=== PATIENT | female | born 1980 | race Caucasian/White ===

== ENCOUNTER → 2019-04-22 | Outpatient (CLI) | payer OTHER ==
[~2019-04-22] MED LIST: ALBU90OI INH; ALBU90OI61 INH; ALPR1 PO; Ambien10 MG PO; Amoxicillin500 MG PO; Ativan1 MG PO; BENZ100A PO; BENZ2 PO; BUDE6HFA INH; Bactrim Ds Tab1 EACH PO; CALC.25; CYCL10 PO; Cleocin HCl300 MG PO; Crutch1 EACH MISC; DIAZ5 PO; Doxycycline Hy100 MG PO; Duoneb 2.5-0.5 M3 ML INH; HYDPAM50 PO; HYDR1TAB94 PO; IBUP600 PO; IBUP800 PO; INS70/30I SUBQ; INSULANI SUBQ; Keflex500 MG PO; Lamotrigine25 MG PO; Lithium Carbon600 MG PO; METF500 PO; Monodox100 MG PO; NORT10 PO; Norco 5-325 Ta1 EACH PO; OXYACE5T PO; PRED10 PO; Percocet 5-3251 EACH PO; Prednisone10 MG PO; Prednisone20 MG PO; Pyridium200 MG PO; QUET100 PO; QUET25 PO; SPACE CHAMBER1 EACH MC; Tylenol325 MG PO; Ventolin Soln3 ML INH; Xanax1 MG PO; ZIPR40 PO
== END | disposition home or self-care (01) ==
LOC: LAB SRC 14:15 → LAB SHORT 14:15
DX: N39.0 Urinary tract infection, site not specified (principal)
CPT/HCPCS: 87077; 87086; 87186

== ENCOUNTER 2020-04-23 18:45 | Emergency (ER) | payer OTHER ==
[~2020-04-23] VITALS: Ht 157.5 cm; Wt 80.3 kg
[2020-04-23] MEDS ORDERED: KETO10 PO (21:20)
[2020-04-23] MEDS ORDERED: ATOR20 PO (21:32)
[2020-04-23] MEDS ORDERED: ZIPR40 PO (21:39)
== END 2020-04-23 21:40 | disposition home or self-care (01) ==
LOC: ER 18:45
DX: S60.032A Contusion of left middle finger without damage to nail, initial encounter (principal); J45.909 Unspecified asthma, uncomplicated; F31.9 Bipolar disorder, unspecified; N19 Unspecified kidney failure; F17.210 Nicotine dependence, cigarettes, uncomplicated; Z88.5 Allergy status to narcotic agent; Z88.8 Allergy status to other drugs, medicaments and biological substances; Z79.899 Other long term (current) drug therapy; W23.0XXA Caught, crushed, jammed, or pinched between moving objects, initial encounter
CPT/HCPCS: 73130

== ENCOUNTER → 2022-01-15 | Outpatient (CLI) | payer OTHER ==
[~2022-01-15] MED LIST changes: +ATOR20 PO; +FLOVENT HFA12 GM INH; +GABA100 PO; +INSULANPEN SC; +KETO10 PO; +NITR100CA PO; +PHENA200 PO; +Ventolin/Prove6.7 GM INH
== END | disposition home or self-care (01) ==
LOC: LAB 16:21 → LAB SHORT 16:21
DX: N39.0 Urinary tract infection, site not specified (principal)
CPT/HCPCS: 87086

== ENCOUNTER → 2022-01-23 | Outpatient (CLI) | payer OTHER | END | disposition home or self-care (01) | LOC: LAB 12:00 → LAB SHORT 12:00 | DX: N39.0 Urinary tract infection, site not specified (principal) | CPT/HCPCS: 87077; 87086; 87186 ==

== ENCOUNTER → 2022-01-30 | Outpatient (CLI) | payer OTHER | END | disposition home or self-care (01) | LOC: LAB SHORT 17:10 → LAB 17:10 | DX: N39.0 Urinary tract infection, site not specified (principal) | CPT/HCPCS: 87077; 87086; 87186 ==

== ENCOUNTER → 2022-02-01 | Outpatient (CLI) | payer OTHER | END | disposition home or self-care (01) | LOC: LAB 12:00 → LAB SHORT 12:00 | DX: N39.0 Urinary tract infection, site not specified (principal) | CPT/HCPCS: 87077; 87086; 87186 ==

== ENCOUNTER → 2022-04-26 | Outpatient (CLI) | payer OTHER | END | disposition home or self-care (01) | LOC: LAB 12:00 → LAB SHORT 12:00 | DX: N39.0 Urinary tract infection, site not specified (principal) | CPT/HCPCS: 87077; 87086; 87186 ==

== ENCOUNTER 2022-08-08 11:48 | Emergency (ER) | payer OTHER ==
[~2022-08-08] VITALS: Ht 152.4 cm; Wt 64.9 kg
[2022-08-08 12:22] LABS: Source, Urine Clean Catch
[2022-08-08 12:24] LABS: BASOPHILS ABSOLUTE AUTO 0.07 K/mm3 (0.00-0.23); BASOPHILS PERCENT AUTO 1 % (0-2); EOSINOPHILS ABSOLUTE AUTO 0.19 K/mm3 (0.00-0.68); EOSINOPHILS PERCENT AUTO 2 % (0-6); Hematocrit 45.7 % (33.0-51.0); Hemoglobin 16.6 g/dL (11.5-16.0); IMMATURE GRAN ABSOLUTE AUTO 0.04 K/mm3 (0.00-0.10); IMMATURE GRAN PERCENT AUTO 0 % (0-1); LYMPHOCYTES PERCENT AUTO 37 % (21-46); MONOCYTES ABSOLUTE AUTO 0.56 K/mm3 (0.16-1.47); MONOCYTES PERCENT AUTO 5 % (4-13); Mean Corpuscular HGB 31.2 pg (26.0-34.0); Mean Corpuscular HGB Conc 36.3 g/dL (31.5-36.5); Mean Corpuscular Volume 86 fL (80-100); Mean Platelet Volume 10.3 fL (9.1-12.4); NEUTROPHILS PERCENT AUTO 55 % (41-73); Platelet Count 266 K/mm3 (150-400); RDW Coefficient Variation 11.6 % (11.7-14.2); RDW Standard Deviation 36.1 fL (35.1-46.3); Red Blood Cell Count 5.32 M/mm3 (3.80-5.20); White Blood Cell Count 10.66 K/mm3 (4.00-11.30)
[2022-08-08 12:25] LABS: Bilirubin, Urine Neg (Neg); Blood, Urine 2+ (Neg); Glucose Qualitative, Urine 4+ (Neg); Ketones, Urine Neg (Neg); Leukocyte Esterase, Urine 2+ (Neg); Nitrite, Urine Neg (Neg); Protein, Urine 2+ (Neg); Specific Gravity, Urine 1.015 (1.003-1.022); Urobilinogen, Urine NORM (Normal)
[2022-08-08 12:41] LABS: Albumin, Blood 3.7 g/dL (3.4-5.0); Albumin/Globulin Ratio 0.9 (0.8-1.8); Bilirubin, Total 0.4 mg/dL (0.1-1.0); Bun/Creatinine Ratio 19.1 (12.0-20.0); Calcium, Blood 9.6 mg/dL (8.5-10.1); Creatinine, Blood 0.84 mg/dL (0.40-1.00); Potassium, Blood 3.9 mmol/L (3.5-5.5); Total Protein, Blood 7.7 g/dL (6.4-8.2)
[2022-08-08 12:43] LABS: Appearance, Urine Hazy (Clear); Color, Urine Yellow (P-Yellow)
[2022-08-08 12:44] LABS: Bacteria Few /hpf; Squamous Epithelial Cells Few /hpf (Few)
[2022-08-08 13:49] LABS: U Amphetamine Screen Not Detected; U Barbituate Screen Not Detected; U Benzodiazapine Screen Not Detected; U Buprenorphine Screen Not Detected; U Cannabinoids Screen DETECTED; U Cocaine Screen Not Detected; U Methadone Screen Not Detected; U Methamphetamine Screen Not Detected; U Opiates Screen Not Detected; U Oxycodone Screen Not Detected; U Phencyclidine Screen Not Detected; U Propoxyphene Screen Not Detected
== END 2022-08-08 13:31 | disposition left against medical advice (07) ==
LOC: ER 11:48
PROVIDERS: Physician Assistant
DX: R56.9 Unspecified convulsions (principal); Z53.21 Procedure and treatment not carried out due to patient leaving prior to being seen by health care provider; Z79.899 Other long term (current) drug therapy
CPT/HCPCS: 36415; 80053; 81001; 83735; 85025

== ENCOUNTER 2023-04-11 17:20 | Emergency (ER) | payer OTHER ==
[~2023-04-11] VITALS: Ht 154.9 cm; Wt 49.9 kg
[~2023-04-11 17:20] MED LIST changes: +ATOR40TA PO; +CEFP200 PO; +ESTRADIOL42.5 GM VAG; +LEVETIRACETAM1000 M1 PO; +LEVETIRACETAM50014 PO; +METFORMIN HCL500 M2 PO; +Methocarbamol500 MG PO; +NEURONTIN300 MG PO; +PRAZOSIN HCL1 M2 PO
[2023-04-11 17:55] VITALS: BP 99/74
[2023-04-11 18:20] LABS: Source, Urine Clean Catch
[2023-04-11 18:41] LABS: BASOPHILS ABSOLUTE AUTO 0.11 K/mm3 (0.00-0.23); BASOPHILS PERCENT AUTO 1 % (0-2); EOSINOPHILS ABSOLUTE AUTO 0.17 K/mm3 (0.00-0.68); EOSINOPHILS PERCENT AUTO 1 % (0-6); Hematocrit 44.9 % (33.0-51.0); Hemoglobin 15.8 g/dL (11.5-16.0); IMMATURE GRAN ABSOLUTE AUTO 0.16 K/mm3 (0.00-0.10); IMMATURE GRAN PERCENT AUTO 1 % (0-1); LYMPHOCYTES ABSOLUTE AUTO 4.11 K/mm3 (0.84-5.20); LYMPHOCYTES PERCENT AUTO 29 % (21-46); MONOCYTES PERCENT AUTO 7 % (4-13); Mean Corpuscular HGB 29.4 pg (26.0-34.0); Mean Corpuscular HGB Conc 35.2 g/dL (31.5-36.5); Mean Corpuscular Volume 84 fL (80-100); NEUTROPHILS ABSOLUTE AUTO 8.51 K/mm3 (1.96-9.15); NEUTROPHILS PERCENT AUTO 61 % (41-73); Platelet Count 457 K/mm3 (150-400); RDW Coefficient Variation 11.9 % (11.7-14.2); RDW Standard Deviation 35.8 fL (35.1-46.3); Red Blood Cell Count 5.38 M/mm3 (3.80-5.20); White Blood Cell Count 14.06 K/mm3 (4.00-11.30)
[2023-04-11 18:53] LABS: Appearance, Urine Hazy (Clear); Bilirubin, Urine Neg (Neg); Blood, Urine 5+ (Neg); Glucose Qualitative, Urine 4+ (Neg); Ketones, Urine Neg (Neg); Leukocyte Esterase, Urine 2+ (Neg); Nitrite, Urine Neg (Neg); Protein, Urine 2+ (Neg); Specific Gravity, Urine 1.015 (1.003-1.022); Urobilinogen, Urine NORM (Normal)
[2023-04-11 18:59] LABS: Magnesium, Blood 2.1 mg/dL (1.6-2.4)
[2023-04-11 19:15] LABS: Albumin, Blood 2.8 g/dL (3.4-5.0); Albumin/Globulin Ratio 0.5 (0.8-1.8); Bilirubin, Total 0.5 mg/dL (0.1-1.0); Bun/Creatinine Ratio 37.4 (12.0-20.0); Calcium, Blood 10.1 mg/dL (8.5-10.1); Creatinine, Blood 0.72 mg/dL (0.40-1.00); Globulin, Blood 5.3 g/dL (2.2-4.0); Potassium, Blood 4.7 mmol/L (3.5-5.5); Total Protein, Blood 8.1 g/dL (6.4-8.2)
[2023-04-11 19:44] LABS: Color, Urine Pale Yellow (P-Yellow)
[2023-04-11 19:46] LABS: Bacteria Many /hpf; Mucus Light (0-Heavy); Squamous Epithelial Cells Few /hpf (Few); White Blood Cells, Urine TNTC /hpf (0-5)
== END 2023-04-11 19:02 | disposition left against medical advice (07) ==
LOC: ER 17:20
PROVIDERS: Physician Assistant
DX: R10.30 Lower abdominal pain, unspecified (principal); Z53.29 Procedure and treatment not carried out because of patient's decision for other reasons
CPT/HCPCS: 80053; 81001; 83735; 85025; 87077; 87086; 87186; 99283

== ENCOUNTER 2023-05-14 17:02 | Emergency (ER) | payer OTHER ==
[~2023-05-14] VITALS: Ht 154.9 cm; Wt 49.9 kg
[2023-05-14 18:00] LABS: BASOPHILS ABSOLUTE AUTO 0.04 K/mm3 (0.00-0.23); BASOPHILS PERCENT AUTO 0 % (0-2); EOSINOPHILS ABSOLUTE AUTO 0.06 K/mm3 (0.00-0.68); EOSINOPHILS PERCENT AUTO 1 % (0-6); Hematocrit 40.2 % (33.0-51.0); Hemoglobin 13.3 g/dL (11.5-16.0); IMMATURE GRAN ABSOLUTE AUTO 0.04 K/mm3 (0.00-0.10); IMMATURE GRAN PERCENT AUTO 0 % (0-1); LYMPHOCYTES ABSOLUTE AUTO 2.15 K/mm3 (0.84-5.20); LYMPHOCYTES PERCENT AUTO 19 % (21-46); MONOCYTES ABSOLUTE AUTO 0.75 K/mm3 (0.16-1.47); MONOCYTES PERCENT AUTO 7 % (4-13); Mean Corpuscular HGB 28.7 pg (26.0-34.0); Mean Corpuscular HGB Conc 33.1 g/dL (31.5-36.5); Mean Corpuscular Volume 87 fL (80-100); Mean Platelet Volume 10.3 fL (9.1-12.4); NEUTROPHILS ABSOLUTE AUTO 8.28 K/mm3 (1.96-9.15); NEUTROPHILS PERCENT AUTO 73 % (41-73); Platelet Count 531 K/mm3 (150-400); RDW Coefficient Variation 12.1 % (11.7-14.2); RDW Standard Deviation 38.6 fL (35.1-46.3); Red Blood Cell Count 4.64 M/mm3 (3.80-5.20); White Blood Cell Count 11.32 K/mm3 (4.00-11.30)
[2023-05-14 18:15] LABS: Albumin, Blood 2.5 g/dL (3.4-5.0); Albumin/Globulin Ratio 0.5 (0.8-1.8); Bilirubin, Total 0.3 mg/dL (0.1-1.0); Bun/Creatinine Ratio 25.2 (12.0-20.0); Calcium, Blood 9.3 mg/dL (8.5-10.1); Creatinine, Blood 0.87 mg/dL (0.40-1.00); Globulin, Blood 4.9 g/dL (2.2-4.0); Potassium, Blood 4.7 mmol/L (3.5-5.5); Total Protein, Blood 7.4 g/dL (6.4-8.2)
[2023-05-14 18:17] LABS: Source, Urine Clean Catch
[2023-05-14 18:29] LABS: Appearance, Urine Hazy (Clear); Bilirubin, Urine Neg (Neg); Blood, Urine 2+ (Neg); Color, Urine Yellow (P-Yellow); Glucose Qualitative, Urine 4+ (Neg); Ketones, Urine Neg (Neg); Leukocyte Esterase, Urine 3+ (Neg); Nitrite, Urine Neg (Neg); Protein, Urine 1+ (Neg); Urobilinogen, Urine NORM (Normal)
[2023-05-14 18:35] LABS: Base Excess Venous 6.1 mmol/L; Bicarbonate Venous 27.2 mmol/L (24.0-30.0); PCO2 Venous 57.4 mmHg (38-42); pH Blood Venous 7.35 (7.34-7.37)
[2023-05-14 18:39] LABS: Beta-hydroxybutyrate 0.7 mg/dL (0.2-2.8)
[2023-05-14 19:40] LABS: White Blood Cells, Urine 50-100 /hpf (0-5)
[2023-05-14 19:41] LABS: Bacteria Many /hpf; Squamous Epithelial Cells Few /hpf (Few)
[2023-05-14 20:45] VITALS: BP 98/59
[2023-05-14 23:40] LABS: Calcium, Ionized (POC) 1.23 mmol/L (1.10-1.46); Chloride (POC) 96 mmol/L (98-108); Creatinine (POC) 0.7 mg/dL (0.6-1.0); Glucose (ISTAT POC) 350 mg/dL (70-99); Hemoglobin (POC) 12.9 g/dL (12.0-16.0); Potassium (POC) 4.1 mmol/L (3.5-5.5); Sodium (POC) 132 mmol/L (135-148); Total CO2 (POC) 28 mmol/L (21-32)
[2023-05-14] MEDS ORDERED: Lantus100 UNIT/1 SC (23:49)
[2023-05-14] MEDS ORDERED: ONDA4ODT SL (23:49)
[2023-05-14] MEDS ORDERED: CEFP200 PO (23:49)
[2023-05-14 23:54] LABS: Glucose, Blood 566 mg/dL (70-99)
== END 2023-05-15 00:10 | disposition home or self-care (01) ==
LOC: ER 17:02
PROVIDERS: Emergency Medicine; Physician Assistant
DX: N39.0 Urinary tract infection, site not specified (principal); E11.65 Type 2 diabetes mellitus with hyperglycemia; J45.909 Unspecified asthma, uncomplicated; F31.9 Bipolar disorder, unspecified; F17.210 Nicotine dependence, cigarettes, uncomplicated
CPT/HCPCS: 80047; 80053; 81001; 82010; 82803; 82947; 84702; 85014; 85025; 87077; 87086; 87186; 96361; 96365; 96375; 96376; 99284-25; J0696; J1815; J2405; J3010; J7030

== ENCOUNTER 2023-05-27 18:44 | Emergency (ER) | payer OTHER ==
[~2023-05-27] VITALS: Ht 154.9 cm; Wt 49.9 kg
[~2023-05-27 18:44] MED LIST changes: +Lantus100 UNIT/1 SC; +ONDA4ODT SL
[2023-05-27 19:21] LABS: BASOPHILS ABSOLUTE AUTO 0.04 K/mm3 (0.00-0.23); BASOPHILS PERCENT AUTO 1 % (0-2); EOSINOPHILS ABSOLUTE AUTO 0.09 K/mm3 (0.00-0.68); EOSINOPHILS PERCENT AUTO 1 % (0-6); Hematocrit 42.5 % (33.0-51.0); Hemoglobin 14.6 g/dL (11.5-16.0); IMMATURE GRAN ABSOLUTE AUTO 0.03 K/mm3 (0.00-0.10); IMMATURE GRAN PERCENT AUTO 0 % (0-1); LYMPHOCYTES ABSOLUTE AUTO 2.45 K/mm3 (0.84-5.20); LYMPHOCYTES PERCENT AUTO 28 % (21-46); MONOCYTES ABSOLUTE AUTO 0.61 K/mm3 (0.16-1.47); MONOCYTES PERCENT AUTO 7 % (4-13); Mean Corpuscular HGB 28.7 pg (26.0-34.0); Mean Corpuscular HGB Conc 34.4 g/dL (31.5-36.5); Mean Corpuscular Volume 84 fL (80-100); Mean Platelet Volume 10.5 fL (9.1-12.4); NEUTROPHILS ABSOLUTE AUTO 5.63 K/mm3 (1.96-9.15); NEUTROPHILS PERCENT AUTO 64 % (41-73); Platelet Count 302 K/mm3 (150-400); RDW Coefficient Variation 12.1 % (11.7-14.2); RDW Standard Deviation 37.1 fL (35.1-46.3); Red Blood Cell Count 5.08 M/mm3 (3.80-5.20); White Blood Cell Count 8.85 K/mm3 (4.00-11.30)
[2023-05-27 19:33] LABS: Source, Urine Clean Catch
[2023-05-27 19:38] LABS: Appearance, Urine Cloudy (Clear); Bilirubin, Urine Neg (Neg); Blood, Urine 4+ (Neg); Color, Urine Yellow (P-Yellow); Glucose Qualitative, Urine 4+ (Neg); Ketones, Urine Neg (Neg); Leukocyte Esterase, Urine 3+ (Neg); Nitrite, Urine Neg (Neg); Protein, Urine 2+ (Neg); Specific Gravity, Urine 1.015 (1.003-1.022); Urobilinogen, Urine NORM (Normal)
[2023-05-27 19:44] LABS: Albumin, Blood 2.8 g/dL (3.4-5.0); Albumin/Globulin Ratio 0.6 (0.8-1.8); Bilirubin, Total 0.5 mg/dL (0.1-1.0); Bun/Creatinine Ratio 37.6 (12.0-20.0); Calcium, Blood 9.5 mg/dL (8.5-10.1); Creatinine, Blood 1.01 mg/dL (0.40-1.00); Globulin, Blood 4.8 g/dL (2.2-4.0); Potassium, Blood 4.2 mmol/L (3.5-5.5); Total Protein, Blood 7.6 g/dL (6.4-8.2)
[2023-05-27 20:08] LABS: White Blood Cells, Urine TNTC /hpf (0-5)
[2023-05-27 20:11] LABS: Bacteria Many /hpf; Squamous Epithelial Cells Few /hpf (Few)
[2023-05-27] MEDS ORDERED: METF500 (21:26)
[2023-05-27] MEDS ORDERED: PROAIR DIGIHAL90 MCG IH (21:26)
[2023-05-27] MEDS ORDERED: CEFP200 PO (23:03)
[2023-05-27] MEDS ORDERED: MELO7.5 PO (23:12)
[2023-05-27 23:15] VITALS: BP 104/72
== END 2023-05-27 23:15 | disposition home or self-care (01) ==
LOC: ER 18:44
PROVIDERS: Emergency Medicine
DX: N13.30 Unspecified hydronephrosis (principal); N39.0 Urinary tract infection, site not specified; E11.65 Type 2 diabetes mellitus with hyperglycemia; J45.909 Unspecified asthma, uncomplicated; F17.210 Nicotine dependence, cigarettes, uncomplicated
CPT/HCPCS: 74176; 80053; 81001; 85025; 87077; 87086; 87147; 87186; 96361; 96365; 96375; 99284-25; J0696; J3010; J7030

== ENCOUNTER 2023-06-02 06:33 | Emergency (ER) | payer OTHER ==
[~2023-06-02] VITALS: Ht 154.9 cm; Wt 52.2 kg
[~2023-06-02 06:33] MED LIST changes: +MELO7.5 PO; +METF500; +PROAIR DIGIHAL90 MCG IH
[2023-06-02 06:43] VITALS: BP 124/101
[2023-06-02 08:53] LABS: Source, Urine Clean Catch
[2023-06-02 08:56] LABS: Appearance, Urine Hazy (Clear); Bilirubin, Urine Neg (Neg); Blood, Urine 5+ (Neg); Glucose Qualitative, Urine 4+ (Neg); Ketones, Urine Neg (Neg); Leukocyte Esterase, Urine 3+ (Neg); Nitrite, Urine Neg (Neg); Protein, Urine 2+ (Neg); Specific Gravity, Urine 1.005 (1.003-1.022); Urobilinogen, Urine NORM (Normal)
[2023-06-02 09:08] LABS: Color, Urine Pale Yellow (P-Yellow)
[2023-06-02 09:10] LABS: Red Blood Cells, Urine 25-50 /hpf (0-2); White Blood Cells, Urine 50-100 /hpf (0-5)
[2023-06-02 09:11] LABS: Bacteria Few /hpf; Squamous Epithelial Cells Rare /hpf (Few)
== END 2023-06-02 08:48 | disposition home or self-care (01) ==
LOC: ER 06:33
PROVIDERS: Physician Assistant
DX: R39.89 Other symptoms and signs involving the genitourinary system (principal); J45.909 Unspecified asthma, uncomplicated; F17.210 Nicotine dependence, cigarettes, uncomplicated; Z88.6 Allergy status to analgesic agent; Z88.5 Allergy status to narcotic agent; Z79.899 Other long term (current) drug therapy
CPT/HCPCS: 51702; 81001; 87077; 87086; 87186; 99283-25

== ENCOUNTER 2023-11-17 09:09 | Inpatient (IN) | payer OTHER ==
[~2023-11-17] VITALS: Ht 152.4 cm; Wt 59.4 kg
[~2023-11-17 09:09] MED LIST changes: +GABA300 PO; +LEVE500 PO; +PROP10
[2023-11-17 09:54] LABS: BASOPHILS ABSOLUTE AUTO 0.08 K/mm3 (0.00-0.23); BASOPHILS PERCENT AUTO 1 % (0-2); EOSINOPHILS ABSOLUTE AUTO 0.02 K/mm3 (0.00-0.68); EOSINOPHILS PERCENT AUTO 0 % (0-6); Hematocrit 31.2 % (33.0-51.0); Hemoglobin 9.5 g/dL (11.5-16.0); IMMATURE GRAN ABSOLUTE AUTO 0.07 K/mm3 (0.00-0.10); IMMATURE GRAN PERCENT AUTO 1 % (0-1); LYMPHOCYTES ABSOLUTE AUTO 2.03 K/mm3 (0.84-5.20); LYMPHOCYTES PERCENT AUTO 16 % (21-46); MONOCYTES ABSOLUTE AUTO 1.13 K/mm3 (0.16-1.47); MONOCYTES PERCENT AUTO 9 % (4-13); Mean Corpuscular HGB 23.7 pg (26.0-34.0); Mean Corpuscular HGB Conc 30.4 g/dL (31.5-36.5); Mean Corpuscular Volume 78 fL (80-100); Mean Platelet Volume 9.4 fL (9.1-12.4); NEUTROPHILS ABSOLUTE AUTO 9.18 K/mm3 (1.96-9.15); NEUTROPHILS PERCENT AUTO 73 % (41-73); Platelet Count 564 K/mm3 (150-400); RDW Coefficient Variation 15.7 % (11.7-14.2); RDW Standard Deviation 44.2 fL (35.1-46.3); Red Blood Cell Count 4.01 M/mm3 (3.80-5.20); White Blood Cell Count 12.51 K/mm3 (4.00-11.30)
[2023-11-17 10:16] LABS: Albumin, Blood 2.1 g/dL (3.4-5.0); Albumin/Globulin Ratio 0.3 (0.8-1.8); Bilirubin, Total 0.4 mg/dL (0.1-1.0); Bun/Creatinine Ratio 27.4 (12.0-20.0); Calcium, Blood 8.9 mg/dL (8.5-10.1); Creatinine, Blood 1.17 mg/dL (0.40-1.00); Globulin, Blood 6.1 g/dL (2.2-4.0); Potassium, Blood 4.1 mmol/L (3.5-5.5); Total Protein, Blood 8.2 g/dL (6.4-8.2)
[2023-11-17] MEDS ORDERED: NS 1,000 ML IV SCH ×3 (10:20→14:40)
[2023-11-17] MEDS ORDERED: HYDROmorphone HCl/Pf 1MG SYR IV ONE (10:20)
[2023-11-17] MEDS ORDERED: Insulin Regular 100 Unit/ML 1ML Dose IV ONE (10:35)
[2023-11-17] MEDS ORDERED: Vancomycin HCL 1,000 MG in NS 110 ML IV ONE (11:00)
[2023-11-17] MEDS ORDERED: HYDROcodone 5-APAP 325 TAB PO PRN (13:25)
[2023-11-17] MEDS ORDERED: Acetaminophen 325 MG TABLET PO PRN (13:30)
[2023-11-17] MEDS ORDERED: Acetaminophen 500 MG Tab PO PRN (13:35)
[2023-11-17] MEDS ORDERED: Melatonin 5 MG Tablet PO PRN (13:35)
[2023-11-17] MEDS ORDERED: DiphenhydrAMINE HCL 25 MG Cap PO PRN (13:40)
[2023-11-17 13:47] LABS: C-REACTIVE PROTEIN, EXT RANGE 7.92 mg/dL (0.000-0.300)
[2023-11-17 14:00] LABS: U Amphetamine Screen Not Detected; U Barbituate Screen Not Detected; U Benzodiazapine Screen Not Detected; U Buprenorphine Screen Not Detected; U Cannabinoids Screen Not Detected; U Cocaine Screen Not Detected; U Methadone Screen Not Detected; U Methamphetamine Screen Not Detected; U Opiates Screen Not Detected; U Oxycodone Screen Not Detected; U Phencyclidine Screen Not Detected
[2023-11-17] MEDS ORDERED: Albuterol HFA200 ACT/6.7 GM INH INH PRN (14:00)
[2023-11-17] MEDS ORDERED: Insulin Regular 100 Unit/ML 1ML Dose SC ONE (14:35)
[2023-11-17] MEDS ORDERED: Ceftaroline Fosamil Acetate 400 MG in NS 250 ML IV SCH (15:00)
[2023-11-17 16:29] VITALS: BP 109/66
[2023-11-17] MEDS ORDERED: Insulin Regular 100 Unit/ML 1ML Dose SC SCH (16:30)
[2023-11-17] MEDS ORDERED: Insulin Regular 100 UNIT/ML 10ML Vial SC SCH ×2 (16:30→17:31)
[2023-11-17] MEDS ORDERED: Ketorolac Tromethamine 30mg Vial IV ONE (17:20)
[2023-11-17 17:47] VITALS: BP 110/78
[2023-11-17 17:58] VITALS: BP 116/77
[2023-11-17] MEDS ORDERED: Insulin Glargine-Yfgn 100 Unit/mL 3 ML SYR SC SCH (18:00)
[2023-11-17] MEDS ORDERED: Methadone HCL 5 MG TAB PO SCH (21:00)
[2023-11-17] MEDS ORDERED: QUEtiapine Fumarate 100 MG Tab PO SCH (21:00)
[2023-11-17] MEDS ORDERED: Sennosides 8.6 MG Tab PO SCH (21:00)
[2023-11-17] MEDS ORDERED: Docusate Sodium 100 MG Cap PO SCH (21:00)
[2023-11-17] MEDS ORDERED: QUEtiapine Fumarate 50 MG TAB PO SCH (21:00)
[2023-11-17] MEDS ORDERED: Lactobacil 2-S.Thermo-Bifido 1 1 Cap PO SCH (21:00)
[2023-11-17] MEDS ORDERED: Gabapentin 300 MG Cap PO SCH (21:00)
[2023-11-17 21:11] VITALS: BP 101/67
[2023-11-18] VITALS (50 sets, daily range): BP systolic 69–131; BP diastolic 42–99
[2023-11-18 04:56] LABS: BASOPHILS ABSOLUTE AUTO 0.04 K/mm3 (0.00-0.23); BASOPHILS PERCENT AUTO 0 % (0-2); EOSINOPHILS ABSOLUTE AUTO 0.01 K/mm3 (0.00-0.68); EOSINOPHILS PERCENT AUTO 0 % (0-6); Hematocrit 29.8 % (33.0-51.0); Hemoglobin 9.1 g/dL (11.5-16.0); IMMATURE GRAN ABSOLUTE AUTO 0.04 K/mm3 (0.00-0.10); IMMATURE GRAN PERCENT AUTO 0 % (0-1); LYMPHOCYTES ABSOLUTE AUTO 1.28 K/mm3 (0.84-5.20); LYMPHOCYTES PERCENT AUTO 13 % (21-46); MONOCYTES PERCENT AUTO 8 % (4-13); Mean Corpuscular HGB 23.5 pg (26.0-34.0); Mean Corpuscular HGB Conc 30.5 g/dL (31.5-36.5); Mean Corpuscular Volume 77 fL (80-100); Mean Platelet Volume 9.2 fL (9.1-12.4); NEUTROPHILS ABSOLUTE AUTO 7.94 K/mm3 (1.96-9.15); NEUTROPHILS PERCENT AUTO 79 % (41-73); Platelet Count 433 K/mm3 (150-400); RDW Coefficient Variation 15.6 % (11.7-14.2); RDW Standard Deviation 43.8 fL (35.1-46.3); Red Blood Cell Count 3.87 M/mm3 (3.80-5.20); White Blood Cell Count 10.11 K/mm3 (4.00-11.30)
[2023-11-18 05:23] LABS: Albumin, Blood 1.9 g/dL (3.4-5.0); Albumin/Globulin Ratio 0.3 (0.8-1.8); Bilirubin, Total 0.4 mg/dL (0.1-1.0); Bun/Creatinine Ratio 24.3 (12.0-20.0); Calcium, Blood 8.9 mg/dL (8.5-10.1); Creatinine, Blood 1.48 mg/dL (0.40-1.00); Globulin, Blood 5.7 g/dL (2.2-4.0); Potassium, Blood 4.7 mmol/L (3.5-5.5); Total Protein, Blood 7.6 g/dL (6.4-8.2)
[2023-11-18] MEDS ORDERED: NS 1,000 ML IV SCH (05:30)
[2023-11-18] MEDS ORDERED: NS 500 ML IV ONE ×2 (05:30→05:50)
[2023-11-18] MEDS ORDERED: Midodrine 5 MG Tab PO ONE (06:30)
[2023-11-18 06:52] LABS: Source, Urine Straight Cath
[2023-11-18 06:57] LABS: Appearance, Urine Cloudy (Clear); Bilirubin, Urine Neg (Neg); Blood, Urine 4+ (Neg); Color, Urine Yellow (P-Yellow); Glucose Qualitative, Urine 2+ (Neg); Ketones, Urine Neg (Neg); Leukocyte Esterase, Urine 3+ (Neg); Nitrite, Urine Neg (Neg); Protein, Urine 3+ (Neg); Urobilinogen, Urine NORM (Normal)
[2023-11-18 07:08] LABS: Bacteria Few /hpf; Squamous Epithelial Cells Not Seen /hpf (Few); White Blood Cells, Urine TNTC /hpf (0-5)
[2023-11-18] MEDS ORDERED: NS 1,000 ML IV ONE (07:55)
[2023-11-18] MEDS ORDERED: Enoxaparin 40 MG/0.4 ML SYR SC SCH (09:00)
[2023-11-18] MEDS ORDERED: OxyCODONE HCL 5 MG TAB PO PRN (09:15)
[2023-11-18] MEDS ORDERED: Darbepoetin Alfa in Polysorbat 25 MCG/0.42 ML Syringe SC ONE (16:00)
[2023-11-18] MEDS ORDERED: Insulin Glargine-Yfgn 100 Unit/mL 3 ML SYR SC SCH (18:00)
[2023-11-18] MEDS ORDERED: Midodrine 5 MG Tab PO SCH (18:00)
[2023-11-18] MEDS ORDERED: HYDROmorphone HCl/Pf 1MG SYR IV PRN (18:00)
[2023-11-18] MEDS ORDERED: Gabapentin 400 MG Cap PO SCH (21:00)
[2023-11-19] VITALS (19 sets, daily range): BP systolic 63–122; BP diastolic 41–73
[2023-11-19] MEDS ORDERED: Aspirin 325 MG Tab PO ONE (01:15)
[2023-11-19 04:27] LABS: Hematocrit 28.7 % (33.0-51.0); Hemoglobin 8.6 g/dL (11.5-16.0)
[2023-11-19 04:57] LABS: Albumin, Blood 1.6 g/dL (3.4-5.0); Anion Gap 10 mmol/L (3-11); Blood Urea Nitrogen 35 mg/dL (8-24); Bun/Creatinine Ratio 22.3 (12.0-20.0); CO2, Blood 18 mmol/L (21-32); Chloride, Blood 111 mmol/L (98-108); Creatinine, Blood 1.57 mg/dL (0.40-1.00); Glomerular Filtration Rate 41 (60-); Glucose, Blood 84 mg/dL (70-99); Magnesium, Blood 1.7 mg/dL (1.6-2.4); Phosphorus, Blood 3.9 mg/dL (2.5-4.9); Potassium, Blood 4.3 mmol/L (3.5-5.5); Sodium, Blood 135 mmol/L (136-145)
[2023-11-19] MEDS ORDERED: Midodrine 5 MG Tab PO ONE (05:30)
[2023-11-19] MEDS ORDERED: Dextrose 50% 50 ML Syringe ONE (08:24)
[2023-11-19] MEDS ORDERED: Dextrose 50% 50 ML Syringe IV ONE ×2 (08:25→15:15)
[2023-11-19] MEDS ORDERED: Sodium Bicarbonate 650 MG Tab PO SCH (09:00)
[2023-11-19] MEDS ORDERED: Ferrous Sulfate 325 MG Tab PO SCH (09:00)
[2023-11-19] MEDS ORDERED: Midodrine 5 MG Tab PO SCH ×2 (09:00→15:00)
[2023-11-19] MEDS ORDERED: NS 1,000 ML IV SCH (12:00)
[2023-11-19] MEDS ORDERED: Lactated Ringer's 1,000 ML IV SCH (14:55)
[2023-11-19] MEDS ORDERED: Lidocaine HCl 2% 20 ML MDV ONE (15:05)
[2023-11-19] MEDS ORDERED: FentaNYL Citrate 50 MCG/ML 2 ML Injection ONE (15:05)
[2023-11-19] MEDS ORDERED: propofoL 20 ML IV ONE (15:05)
[2023-11-19] MEDS ORDERED: Dexmedetomidine HCL 200 MCG / 2 ML ONE (15:14)
[2023-11-19] MEDS ORDERED: Dextrose 5% 250 ML IV ONE (15:50)
[2023-11-19] MEDS ORDERED: Dexamethasone Sod Phos 10 MG/ML 1ML VIAL ONE (15:50)
[2023-11-19] MEDS ORDERED: Ondansetron HCl 2 MG / ML 2ML Vial ONE (16:18)
[2023-11-19] MEDS ORDERED: Bupivacaine 0.5% HCl 5 MG/ML 30MLVIAL ONE (16:32)
[2023-11-20] VITALS: BP 94/58
[2023-11-20 01:46] LABS: Hematocrit 27.8 % (33.0-51.0); Hemoglobin 8.5 g/dL (11.5-16.0); Mean Corpuscular HGB 23.9 pg (26.0-34.0); Mean Corpuscular HGB Conc 30.6 g/dL (31.5-36.5); Mean Corpuscular Volume 78 fL (80-100); Mean Platelet Volume 9.5 fL (9.1-12.4); Platelet Count 369 K/mm3 (150-400); RDW Coefficient Variation 15.6 % (11.7-14.2); RDW Standard Deviation 44.7 fL (35.1-46.3); Red Blood Cell Count 3.56 M/mm3 (3.80-5.20); White Blood Cell Count 17.96 K/mm3 (4.00-11.30)
[2023-11-20 02:09] LABS: Albumin, Blood 1.5 g/dL (3.4-5.0); Anion Gap 10 mmol/L (3-11); Blood Urea Nitrogen 35 mg/dL (8-24); Bun/Creatinine Ratio 23.8 (12.0-20.0); CO2, Blood 19 mmol/L (21-32); Calcium, Blood 8.2 mg/dL (8.5-10.1); Chloride, Blood 108 mmol/L (98-108); Creatinine, Blood 1.47 mg/dL (0.40-1.00); Glomerular Filtration Rate 45 (60-); Glucose, Blood 596 mg/dL (70-99); Magnesium, Blood 1.9 mg/dL (1.6-2.4); Phosphorus, Blood 5.5 mg/dL (2.5-4.9); Potassium, Blood 5.1 mmol/L (3.5-5.5); Sodium, Blood 132 mmol/L (136-145)
[2023-11-20 02:17] LABS: BAND PERCENT MAN 11 % (0-8); BASOPHILS PERCENT MAN 0 % (0-2); EOSINOPHILS PERCENT MAN 0 % (0-6); LYMPHOCYTES ABSOLUTE MAN 0.89 K/mm3 (0.84-5.20); LYMPHOCYTES PERCENT MAN 5 % (21-46); MONOCYTES PERCENT MAN 0 % (4-13); NEUTROPHILS ABSOLUTE MAN 17.06 K/mm3 (1.96-9.15); SEG NEUTROPHILS PERCENT MAN 84 % (41-73); TOTAL CELLS COUNTED 100
[2023-11-20] MEDS ORDERED: Insulin Glargine-Yfgn 100 Unit/mL 3 ML SYR SC ONE ×2 (02:20→05:25)
[2023-11-20 03:00] VITALS: BP 98/64
[2023-11-20] MEDS ORDERED: OxyCODONE HCL 5 MG TAB PO PRN (08:25)
[2023-11-20 08:31] VITALS: BP 112/67
[2023-11-20] MEDS ORDERED: Insulin Glargine-Yfgn 100 Unit/mL 3 ML SYR SC SCH ×2 (09:00→18:00)
[2023-11-20 11:41] VITALS: BP 98/67
[2023-11-20] MEDS ORDERED: Insulin Human Regular 100 UNIT/ML 10ML Vial SC ONE (13:55)
[2023-11-20] MEDS ORDERED: Miconazole Nitrate 28 GM CREAM..G. TOP PRN (15:10)
[2023-11-20 16:46] VITALS: BP 103/67
[2023-11-20 20:46] VITALS: BP 120/82
[2023-11-21 00:37] VITALS: BP 108/77
[2023-11-21 03:34] VITALS: BP 99/58
[2023-11-21 04:23] LABS: BASOPHILS ABSOLUTE AUTO 0.07 K/mm3 (0.00-0.23); BASOPHILS PERCENT AUTO 0 % (0-2); EOSINOPHILS PERCENT AUTO 0 % (0-6); Hemoglobin 7.5 g/dL (11.5-16.0); IMMATURE GRAN ABSOLUTE AUTO 0.28 K/mm3 (0.00-0.10); IMMATURE GRAN PERCENT AUTO 2 % (0-1); LYMPHOCYTES ABSOLUTE AUTO 3.13 K/mm3 (0.84-5.20); LYMPHOCYTES PERCENT AUTO 19 % (21-46); MONOCYTES PERCENT AUTO 5 % (4-13); Mean Corpuscular HGB 23.6 pg (26.0-34.0); Mean Corpuscular Volume 79 fL (80-100); Mean Platelet Volume 9.4 fL (9.1-12.4); NEUTROPHILS ABSOLUTE AUTO 12.01 K/mm3 (1.96-9.15); NEUTROPHILS PERCENT AUTO 74 % (41-73); Platelet Count 447 K/mm3 (150-400); RDW Coefficient Variation 15.8 % (11.7-14.2); RDW Standard Deviation 45.3 fL (35.1-46.3); Red Blood Cell Count 3.18 M/mm3 (3.80-5.20); White Blood Cell Count 16.29 K/mm3 (4.00-11.30)
[2023-11-21 04:50] LABS: Albumin, Blood 1.5 g/dL (3.4-5.0); Anion Gap 12 mmol/L (3-11); Blood Urea Nitrogen 37 mg/dL (8-24); Bun/Creatinine Ratio 23.4 (12.0-20.0); CO2, Blood 21 mmol/L (21-32); Calcium, Blood 8.5 mg/dL (8.5-10.1); Chloride, Blood 106 mmol/L (98-108); Creatinine, Blood 1.58 mg/dL (0.40-1.00); Glomerular Filtration Rate 41 (60-); Glucose, Blood 268 mg/dL (70-99); Magnesium, Blood 1.8 mg/dL (1.6-2.4); Phosphorus, Blood 3.5 mg/dL (2.5-4.9); Potassium, Blood 4.6 mmol/L (3.5-5.5); Sodium, Blood 134 mmol/L (136-145)
[2023-11-21] MEDS ORDERED: Ondansetron HCl 2 MG / ML 2ML Vial IV PRN (05:00)
[2023-11-21 12:36] VITALS: BP 107/64
[2023-11-21 19:36] VITALS: BP 101/63
[2023-11-22 03:14] VITALS: BP 100/59
[2023-11-22 05:09] LABS: BASOPHILS ABSOLUTE AUTO 0.04 K/mm3 (0.00-0.23); BASOPHILS PERCENT AUTO 0 % (0-2); EOSINOPHILS PERCENT AUTO 0 % (0-6); Hematocrit 24.6 % (33.0-51.0); Hemoglobin 7.3 g/dL (11.5-16.0); IMMATURE GRAN ABSOLUTE AUTO 0.26 K/mm3 (0.00-0.10); IMMATURE GRAN PERCENT AUTO 2 % (0-1); LYMPHOCYTES ABSOLUTE AUTO 3.21 K/mm3 (0.84-5.20); LYMPHOCYTES PERCENT AUTO 26 % (21-46); MONOCYTES ABSOLUTE AUTO 1.26 K/mm3 (0.16-1.47); MONOCYTES PERCENT AUTO 10 % (4-13); Mean Corpuscular HGB 23.7 pg (26.0-34.0); Mean Corpuscular HGB Conc 29.7 g/dL (31.5-36.5); Mean Corpuscular Volume 80 fL (80-100); Mean Platelet Volume 9.4 fL (9.1-12.4); NEUTROPHILS PERCENT AUTO 62 % (41-73); Platelet Count 408 K/mm3 (150-400); RDW Coefficient Variation 15.9 % (11.7-14.2); RDW Standard Deviation 46.2 fL (35.1-46.3); Red Blood Cell Count 3.08 M/mm3 (3.80-5.20); White Blood Cell Count 12.37 K/mm3 (4.00-11.30)
[2023-11-22 05:32] LABS: Albumin, Blood 1.5 g/dL (3.4-5.0); Anion Gap 11 mmol/L (3-11); Blood Urea Nitrogen 34 mg/dL (8-24); Bun/Creatinine Ratio 21.9 (12.0-20.0); CO2, Blood 22 mmol/L (21-32); Calcium, Blood 8.7 mg/dL (8.5-10.1); Chloride, Blood 109 mmol/L (98-108); Creatinine, Blood 1.55 mg/dL (0.40-1.00); Glomerular Filtration Rate 42 (60-); Glucose, Blood 160 mg/dL (70-99); Magnesium, Blood 1.6 mg/dL (1.6-2.4); Phosphorus, Blood 3.3 mg/dL (2.5-4.9); Sodium, Blood 137 mmol/L (136-145)
[2023-11-22] MEDS ORDERED: Furosemide 10 MG/ML 4ML Vial IV ONE (06:45)
[2023-11-22 08:00] VITALS: BP 85/55
[2023-11-22 08:21] LABS: C-REACTIVE PROTEIN, EXT RANGE 5.51 mg/dL (0.000-0.300)
[2023-11-22 08:26] LABS: Percent Saturation 8.4 % (15.0-50.0)
[2023-11-22] MEDS ORDERED: HYDROmorphone HCl/Pf 1MG SYR IV ONE (12:20)
[2023-11-22 15:59] VITALS: BP 98/70
[2023-11-22 19:26] VITALS: BP 104/68
[2023-11-23 03:28] VITALS: BP 88/55
[2023-11-23] MEDS ORDERED: Midodrine 5 MG Tab PO ONE (03:40)
[2023-11-23 05:19] LABS: BASOPHILS ABSOLUTE AUTO 0.07 K/mm3 (0.00-0.23); BASOPHILS PERCENT AUTO 0 % (0-2); EOSINOPHILS PERCENT AUTO 0 % (0-6); Hematocrit 26.9 % (33.0-51.0); Hemoglobin 7.9 g/dL (11.5-16.0); IMMATURE GRAN ABSOLUTE AUTO 0.72 K/mm3 (0.00-0.10); IMMATURE GRAN PERCENT AUTO 5 % (0-1); LYMPHOCYTES ABSOLUTE AUTO 3.93 K/mm3 (0.84-5.20); LYMPHOCYTES PERCENT AUTO 25 % (21-46); MONOCYTES ABSOLUTE AUTO 1.38 K/mm3 (0.16-1.47); MONOCYTES PERCENT AUTO 9 % (4-13); Mean Corpuscular HGB 23.3 pg (26.0-34.0); Mean Corpuscular HGB Conc 29.4 g/dL (31.5-36.5); Mean Corpuscular Volume 79 fL (80-100); Mean Platelet Volume 9.3 fL (9.1-12.4); NEUTROPHILS PERCENT AUTO 62 % (41-73); NRBC ABSOLUTE 0.03 K/mm3 (0.00-0.02); NRBC Auto 0.2 /100 WBC (0.0-0.2); Platelet Count 437 K/mm3 (150-400); RDW Standard Deviation 45.9 fL (35.1-46.3); Red Blood Cell Count 3.39 M/mm3 (3.80-5.20)
[2023-11-23 05:23] VITALS: BP 91/60
[2023-11-23 06:10] LABS: Albumin, Blood 1.7 g/dL (3.4-5.0); Anion Gap 12 mmol/L (3-11); Blood Urea Nitrogen 38 mg/dL (8-24); Bun/Creatinine Ratio 25.5 (12.0-20.0); CO2, Blood 23 mmol/L (21-32); Calcium, Blood 8.9 mg/dL (8.5-10.1); Chloride, Blood 106 mmol/L (98-108); Creatinine, Blood 1.49 mg/dL (0.40-1.00); Glomerular Filtration Rate 44 (60-); Glucose, Blood 165 mg/dL (70-99); Magnesium, Blood 1.6 mg/dL (1.6-2.4); Phosphorus, Blood 4.6 mg/dL (2.5-4.9); Potassium, Blood 4.5 mmol/L (3.5-5.5); Sodium, Blood 136 mmol/L (136-145)
[2023-11-23 07:24] VITALS: BP 93/64
[2023-11-23] MEDS ORDERED: HYDROmorphone HCl/Pf 1MG SYR IV PRN (08:35)
[2023-11-23] MEDS ORDERED: Protein Supplement 30 ML UD PO SCH (10:00)
[2023-11-23] MEDS ORDERED: Bumetanide 0.25 MG/ML 10ML Vial IV SCH (10:35)
[2023-11-23 15:36] VITALS: BP 95/61
[2023-11-23 19:29] VITALS: BP 105/61
[2023-11-24 03:44] VITALS: BP 93/64
[2023-11-24 07:53] VITALS: BP 90/56
[2023-11-24 08:20] LABS: Albumin, Blood 1.6 g/dL (3.4-5.0); Anion Gap 9 mmol/L (3-11); Blood Urea Nitrogen 44 mg/dL (8-24); Bun/Creatinine Ratio 32.1 (12.0-20.0); CO2, Blood 28 mmol/L (21-32); Calcium, Blood 8.9 mg/dL (8.5-10.1); Chloride, Blood 105 mmol/L (98-108); Creatinine, Blood 1.37 mg/dL (0.40-1.00); Glomerular Filtration Rate 49 (60-); Glucose, Blood 157 mg/dL (70-99); Magnesium, Blood 1.6 mg/dL (1.6-2.4); Potassium, Blood 4.5 mmol/L (3.5-5.5); Sodium, Blood 137 mmol/L (136-145)
[2023-11-24] MEDS ORDERED: Nitrofurantoin/Nitrofuran Mac 100 MG Cap PO SCH (12:00)
[2023-11-24 15:48] VITALS: BP 112/68
[2023-11-24 20:00] VITALS: BP 105/70
[2023-11-25] MEDS ORDERED: NS 250 ML IV PRN (02:45)
[2023-11-25 02:55] VITALS: BP 108/73
[2023-11-25 04:40] LABS: Hematocrit 27.3 % (33.0-51.0); Hemoglobin 8.1 g/dL (11.5-16.0)
[2023-11-25 04:57] LABS: Albumin, Blood 1.8 g/dL (3.4-5.0); Anion Gap 10 mmol/L (3-11); Blood Urea Nitrogen 45 mg/dL (8-24); Bun/Creatinine Ratio 30.6 (12.0-20.0); CO2, Blood 28 mmol/L (21-32); Calcium, Blood 9.2 mg/dL (8.5-10.1); Chloride, Blood 101 mmol/L (98-108); Creatinine, Blood 1.47 mg/dL (0.40-1.00); Glomerular Filtration Rate 45 (60-); Glucose, Blood 212 mg/dL (70-99); Magnesium, Blood 1.7 mg/dL (1.6-2.4); Phosphorus, Blood 4.1 mg/dL (2.5-4.9); Potassium, Blood 4.4 mmol/L (3.5-5.5); Sodium, Blood 135 mmol/L (136-145)
[2023-11-25 07:23] VITALS: BP 94/60
[2023-11-25] MEDS ORDERED: Triamcinolone Acet 0.1% Ointment 15 GM TOP SCH (09:00)
[2023-11-25] MEDS ORDERED: Bumetanide 1 MG Tab PO SCH (09:00)
[2023-11-25 15:35] VITALS: BP 94/60
[2023-11-25 17:48] VITALS: BP 115/76
[2023-11-25 19:39] VITALS: BP 100/67
[2023-11-26 02:52] VITALS: BP 100/69
[2023-11-26 04:59] LABS: BASOPHILS ABSOLUTE AUTO 0.09 K/mm3 (0.00-0.23); BASOPHILS PERCENT AUTO 1 % (0-2); EOSINOPHILS PERCENT AUTO 0 % (0-6); Hematocrit 30.3 % (33.0-51.0); Hemoglobin 9.1 g/dL (11.5-16.0); IMMATURE GRAN ABSOLUTE AUTO 0.45 K/mm3 (0.00-0.10); IMMATURE GRAN PERCENT AUTO 3 % (0-1); LYMPHOCYTES PERCENT AUTO 24 % (21-46); MONOCYTES ABSOLUTE AUTO 1.18 K/mm3 (0.16-1.47); MONOCYTES PERCENT AUTO 8 % (4-13); Mean Corpuscular HGB 23.5 pg (26.0-34.0); Mean Corpuscular Volume 78 fL (80-100); NEUTROPHILS ABSOLUTE AUTO 9.99 K/mm3 (1.96-9.15); NEUTROPHILS PERCENT AUTO 65 % (41-73); Platelet Count 551 K/mm3 (150-400); RDW Coefficient Variation 16.9 % (11.7-14.2); RDW Standard Deviation 47.2 fL (35.1-46.3); Red Blood Cell Count 3.88 M/mm3 (3.80-5.20); White Blood Cell Count 15.31 K/mm3 (4.00-11.30)
[2023-11-26 05:27] LABS: Albumin, Blood 2.1 g/dL (3.4-5.0); Anion Gap 11 mmol/L (3-11); Blood Urea Nitrogen 50 mg/dL (8-24); Bun/Creatinine Ratio 32.1 (12.0-20.0); CO2, Blood 29 mmol/L (21-32); Calcium, Blood 9.5 mg/dL (8.5-10.1); Chloride, Blood 99 mmol/L (98-108); Creatinine, Blood 1.56 mg/dL (0.40-1.00); Glomerular Filtration Rate 42 (60-); Glucose, Blood 155 mg/dL (70-99); Magnesium, Blood 1.9 mg/dL (1.6-2.4); Phosphorus, Blood 5.2 mg/dL (2.5-4.9); Potassium, Blood 4.4 mmol/L (3.5-5.5); Sodium, Blood 135 mmol/L (136-145)
[2023-11-26 07:23] VITALS: BP 92/58
[2023-11-26] MEDS ORDERED: Bumetanide 1 MG Tab PO SCH (09:00)
[2023-11-26 15:37] VITALS: BP 93/61
[2023-11-26] MEDS ORDERED: HYDROmorphone HCl 2 MG Tab PO PRN (19:15)
[2023-11-26 19:25] VITALS: BP 109/74
[2023-11-27 03:13] VITALS: BP 101/64
[2023-11-27 05:06] LABS: BASOPHILS ABSOLUTE AUTO 0.06 K/mm3 (0.00-0.23); BASOPHILS PERCENT AUTO 1 % (0-2); EOSINOPHILS PERCENT AUTO 0 % (0-6); Hematocrit 28.6 % (33.0-51.0); Hemoglobin 8.6 g/dL (11.5-16.0); IMMATURE GRAN ABSOLUTE AUTO 0.24 K/mm3 (0.00-0.10); IMMATURE GRAN PERCENT AUTO 2 % (0-1); LYMPHOCYTES ABSOLUTE AUTO 3.04 K/mm3 (0.84-5.20); LYMPHOCYTES PERCENT AUTO 23 % (21-46); MONOCYTES ABSOLUTE AUTO 0.99 K/mm3 (0.16-1.47); MONOCYTES PERCENT AUTO 8 % (4-13); Mean Corpuscular HGB 23.2 pg (26.0-34.0); Mean Corpuscular HGB Conc 30.1 g/dL (31.5-36.5); Mean Corpuscular Volume 77 fL (80-100); Mean Platelet Volume 9.3 fL (9.1-12.4); NEUTROPHILS PERCENT AUTO 67 % (41-73); Platelet Count 532 K/mm3 (150-400); RDW Standard Deviation 46.6 fL (35.1-46.3); White Blood Cell Count 13.13 K/mm3 (4.00-11.30)
[2023-11-27 05:34] LABS: Albumin, Blood 2.1 g/dL (3.4-5.0); Anion Gap 13 mmol/L (3-11); Blood Urea Nitrogen 63 mg/dL (8-24); Bun/Creatinine Ratio 34.8 (12.0-20.0); CO2, Blood 28 mmol/L (21-32); Calcium, Blood 9.4 mg/dL (8.5-10.1); Chloride, Blood 96 mmol/L (98-108); Creatinine, Blood 1.81 mg/dL (0.40-1.00); Glomerular Filtration Rate 35 (60-); Glucose, Blood 197 mg/dL (70-99); Phosphorus, Blood 5.5 mg/dL (2.5-4.9); Potassium, Blood 4.3 mmol/L (3.5-5.5); Sodium, Blood 133 mmol/L (136-145)
[2023-11-27 07:31] VITALS: BP 108/70
[2023-11-27] MEDS ORDERED: HYDROmorphone HCl 4 MG Tab PO PRN (11:20)
[2023-11-27] MEDS ORDERED: HYDROmorphone HCl/Pf 1MG SYR IV PRN (11:20)
[2023-11-27 12:14] VITALS: BP 109/77
[2023-11-27 15:20] VITALS: BP 105/66
[2023-11-27 19:45] VITALS: BP 117/76
[2023-11-28 03:15] VITALS: BP 96/65
[2023-11-28 06:58] LABS: Anion Gap 10 mmol/L (3-11); Blood Urea Nitrogen 66 mg/dL (8-24); Bun/Creatinine Ratio 35.1 (12.0-20.0); CO2, Blood 27 mmol/L (21-32); Calcium, Blood 9.3 mg/dL (8.5-10.1); Chloride, Blood 102 mmol/L (98-108); Creatinine, Blood 1.88 mg/dL (0.40-1.00); Glomerular Filtration Rate 33 (60-); Glucose, Blood 226 mg/dL (70-99); Magnesium, Blood 2.3 mg/dL (1.6-2.4); Phosphorus, Blood 5.8 mg/dL (2.5-4.9); Potassium, Blood 4.5 mmol/L (3.5-5.5); Sodium, Blood 134 mmol/L (136-145)
[2023-11-28 07:37] VITALS: BP 94/59
[2023-11-28] MEDS ORDERED: HYDROmorphone HCl 2 MG Tab PO PRN (09:10)
[2023-11-28 16:18] VITALS: BP 99/71
[2023-11-28 19:48] VITALS: BP 101/66
[2023-11-29 02:53] VITALS: BP 98/63
[2023-11-29 04:50] LABS: Hematocrit 25.5 % (33.0-51.0); Hemoglobin 7.7 g/dL (11.5-16.0)
[2023-11-29 05:08] LABS: Anion Gap 9 mmol/L (3-11); Blood Urea Nitrogen 68 mg/dL (8-24); Bun/Creatinine Ratio 34.2 (12.0-20.0); CO2, Blood 27 mmol/L (21-32); Calcium, Blood 9.2 mg/dL (8.5-10.1); Chloride, Blood 103 mmol/L (98-108); Creatinine, Blood 1.99 mg/dL (0.40-1.00); Glomerular Filtration Rate 31 (60-); Glucose, Blood 152 mg/dL (70-99); Magnesium, Blood 2.3 mg/dL (1.6-2.4); Phosphorus, Blood 5.4 mg/dL (2.5-4.9); Potassium, Blood 4.8 mmol/L (3.5-5.5); Sodium, Blood 134 mmol/L (136-145)
[2023-11-29] MEDS ORDERED: NS 1,000 ML IV SCH (07:10)
[2023-11-29 07:23] VITALS: BP 107/65
[2023-11-29 15:08] VITALS: BP 104/65
[2023-11-29] MEDS ORDERED: DOXY100 PO (16:55)
[2023-11-29] MEDS ORDERED: ACET500 PO (16:58)
[2023-12-01] MEDS ORDERED: Pyridium100 MG PO (17:54)
[2023-12-01] MEDS ORDERED: HYDMOR2 (17:55)
[2023-12-01] MEDS ORDERED: HYDMOR2 PO (17:55)
== END 2023-11-29 17:07 | disposition home or self-care (01) | DRG 854 ==
LOC: ER 09:09 → MEDS 09:10 → PCU 11-18 06:56 → MEDS 11-18 11:17 → PCU 11-21 10:06 → MEDS 11-21 13:03
PROVIDERS: Emergency Medicine; Internal Medicine; Internal Medicine Nephrology; Orthopaedic Surgery Sports Medicine; Student in an Organized Health Care Education/Training Program; ADMIT Internal Medicine
PROC: 3E03329 Introduction of Other Anti-infective into Peripheral Vein, Percutaneous Approach (ICD-10-PCS; 2023-11-18)
PROC: 0KBT0ZZ Excision of Left Lower Leg Muscle, Open Approach (ICD-10-PCS; principal; 2023-11-19 15:15)
DX: A41.02 Sepsis due to Methicillin resistant Staphylococcus aureus (principal); E87.1 Hypo-osmolality and hyponatremia; L02.415 Cutaneous abscess of right lower limb; N17.9 Acute kidney failure, unspecified; L02.416 Cutaneous abscess of left lower limb; Z59.01 Sheltered homelessness; N39.0 Urinary tract infection, site not specified; N25.81 Secondary hyperparathyroidism of renal origin; L03.116 Cellulitis of left lower limb; L03.115 Cellulitis of right lower limb; E87.20 Acidosis, unspecified; R65.20 Severe sepsis without septic shock; F15.10 Other stimulant abuse, uncomplicated; M25.449 Effusion, unspecified hand; E88.09 Other disorders of plasma-protein metabolism, not elsewhere classified; F41.9 Anxiety disorder, unspecified; E86.9 Volume depletion, unspecified; I48.91 Unspecified atrial fibrillation; E10.22 Type 1 diabetes mellitus with diabetic chronic kidney disease; E10.65 Type 1 diabetes mellitus with hyperglycemia; F17.210 Nicotine dependence, cigarettes, uncomplicated; G47.00 Insomnia, unspecified; E87.5 Hyperkalemia; F31.9 Bipolar disorder, unspecified; N18.30 Chronic kidney disease, stage 3 unspecified; I95.9 Hypotension, unspecified; E83.39 Other disorders of phosphorus metabolism; D63.1 Anemia in chronic kidney disease; Z87.442 Personal history of urinary calculi; Z98.890 Other specified postprocedural states; Z90.710 Acquired absence of both cervix and uterus; Z79.4 Long term (current) use of insulin; Z79.2 Long term (current) use of antibiotics; Z79.899 Other long term (current) drug therapy; Z79.891 Long term (current) use of opiate analgesic; Z88.8 Allergy status to other drugs, medicaments and biological substances; Z87.440 Personal history of urinary (tract) infections; Z86.19 Personal history of other infectious and parasitic diseases; Z90.49 Acquired absence of other specified parts of digestive tract; Z71.51 Drug abuse counseling and surveillance of drug abuser
CPT/HCPCS: 36415; 71250; 73223; 73700; 74150; 74176; 76770; 76882; 80053; 80069; 81001; 82728; 82947; 83540; 83550; 83605; 83735; 83880; 84145; 85014; 85018; 85025; 85651; 86140; 87040; 87070; 87075; 87086; 87205; 93308; 93321; 94640; 94664; 94760; 96361; 96365; 96366; 96375; 99284-25; A9270; A9579; G0378; J0712; J0881; J1100; J1170; J1650; J1815; J1885; J1940; J2405; J2704; J3010; J3370; J7030; J7040; J7050; J7120

== ENCOUNTER 2023-12-01 16:07 | Inpatient (IN) | payer OTHER ==
[~2023-12-01] VITALS: Ht 152.4 cm; Wt 160.5 kg
[2023-12-08 07:30] VITALS: BP 122/87
== END 2023-12-08 11:59 | disposition home or self-care (01) | DRG 580 ==
LOC: ER 16:07 → MEDS 21:52
PROVIDERS: ADMIT Internal Medicine
PROC: 0H9JXZZ Drainage of Left Upper Leg Skin, External Approach (ICD-10-PCS; principal; 2023-12-05)
PROC: 0JDG0ZZ Extraction of Right Lower Arm Subcutaneous Tissue and Fascia, Open Approach (ICD-10-PCS; 2023-12-05)
DX: L02.416 Cutaneous abscess of left lower limb (principal); N17.9 Acute kidney failure, unspecified; R45.851 Suicidal ideations; Z59.01 Sheltered homelessness; L02.415 Cutaneous abscess of right lower limb; F43.21 Adjustment disorder with depressed mood; E11.22 Type 2 diabetes mellitus with diabetic chronic kidney disease; N18.30 Chronic kidney disease, stage 3 unspecified; M79.81 Nontraumatic hematoma of soft tissue; I48.91 Unspecified atrial fibrillation; F17.200 Nicotine dependence, unspecified, uncomplicated; F15.11 Other stimulant abuse, in remission; G89.29 Other chronic pain; F41.9 Anxiety disorder, unspecified; E11.65 Type 2 diabetes mellitus with hyperglycemia; R60.0 Localized edema; D64.9 Anemia, unspecified; F31.9 Bipolar disorder, unspecified; I95.9 Hypotension, unspecified; Z86.14 Personal history of Methicillin resistant Staphylococcus aureus infection; Z88.5 Allergy status to narcotic agent; Z88.8 Allergy status to other drugs, medicaments and biological substances; Z79.891 Long term (current) use of opiate analgesic

== ENCOUNTER 2023-12-04 04:35 | Day surgery (SDC) | payer OTHER ==
[~2023-12-04 04:35] MED LIST changes: +ACET500 PO; +DOXY100 PO; +HYDMOR2; +HYDMOR2 PO; +Pyridium100 MG PO
[2023-12-04] MEDS ORDERED: propofoL 20 ML IV ONE (15:22)
[2023-12-04] MEDS ORDERED: Ondansetron HCl 2 MG / ML 2ML Vial ONE (15:22)
[2023-12-04] MEDS ORDERED: Dexamethasone Sod Phos 10 MG/ML 1ML VIAL ONE (15:22)
[2023-12-04] MEDS ORDERED: FentaNYL Citrate 50 MCG/ML 2 ML Injection ONE (15:22)
[2023-12-04] MEDS ORDERED: Midazolam HCl 1MG / ML 2ML Vial ONE (15:23)
== END 2023-12-04 23:22 | disposition home or self-care (01) ==
LOC: ATC 04:35
DX: L02.415 Cutaneous abscess of right lower limb (principal); E10.21 Type 1 diabetes mellitus with diabetic nephropathy; E10.22 Type 1 diabetes mellitus with diabetic chronic kidney disease; N18.31 Chronic kidney disease, stage 3a; J45.909 Unspecified asthma, uncomplicated; F17.210 Nicotine dependence, cigarettes, uncomplicated
CPT/HCPCS: J1100; J2250; J2405; J2704; J3010